=== PATIENT | male | born 1960 | race Caucasian/White ===

== ENCOUNTER 2022-07-15 08:44 | Observation (INO) | payer BC, OTHER ==
[2022-07-15] MEDS ORDERED: SODIUM CHLORIDE 1,000 ML IV STA (08:59)
[2022-07-15] MEDS ORDERED: ACETAMINOPHEN 325 MG TABLET (FP) PO ONE (08:59)
[2022-07-15] MEDS ORDERED: ACETAMINOPHEN 325 MG TABLET (FP) ONE (09:06)
[2022-07-15 09:44] LABS: INR 1.13 (0.83-1.09)
[2022-07-15 09:46] LABS: HEMATOCRIT 46.8 % (35.4-49); HEMOGLOBIN 16.3 G/dL (11.7-16.9); MCH 29.3 pg (25.7-33.7); MCHC 34.8 g/dl (32.0-35.9); MEAN CELL VOLUME 84.3 fl (80-96); MEAN PLT VOLUME 7.9 fl (7.5-11.1); PLATELET COUNT 219.8 10^3/uL (134-434); RBC 5.55 10^6/uL (4.00-5.60); RDW 15.1 % (11.9-15.9); WHITE BLOOD COUNT 9.7 10^3/uL (4.0-10.8)
[2022-07-15 09:53] LABS: BILIRUBIN,TOTAL 0.7 mg/dl (0.2-1); CALCIUM 9.3 mg/dl (8.5-10); CREATININE 0.7 mg/dl (0.55-1.3); TOT PROT 7.1 g/dl (6.4-8.2)
[2022-07-15 10:09] LABS: PLATELET ESTIMATE ADEQUATE
[2022-07-15] MEDS ORDERED: IBUPROFEN 600 MG TABLET (FP) PO PRN (15:07)
[2022-07-15 15:10] VITALS: BMI 45.9
[2022-07-15] MEDS: PREGABALIN 100 MG CAPSULE PO SCH (21:23)
[2022-07-16 08:53] LABS: CALCIUM 8.8 mg/dl (8.5-10); CREATININE 0.7 mg/dl (0.55-1.3); MAGNESIUM 1.7 mg/dL (1.8-2.4); PHOSPHOROUS 3.9 mg/dl (2.5-4.9)
[2022-07-16] MEDS ORDERED: FINGOLIMOD HCL 0.5 MG PO SCH (10:00)
[2022-07-16] MEDS: ACETAMINOPHEN 500 MG TABLET (FP) PO SCH ×3 (10:06→21:25)
[2022-07-16] MEDS: PREGABALIN 100 MG CAPSULE PO SCH ×2 (10:06→21:25)
[2022-07-16 10:07] LABS: BASO % 0.1 % (0-2.0); HEMATOCRIT 45.6 % (35.4-49); HEMOGLOBIN 14.6 GM/dL (11.7-16.9); LYMPH % 10.1 % (8-40); MCH 27.3 pg (25.7-33.7); MCHC 32.1 g/dl (32.0-35.9); MEAN CELL VOLUME 85.1 fl (80-96); MEAN PLT VOLUME 8.1 fl (7.5-11.1); MONO % 15.5 % (3.8-10.2); NEUT % 74.3 % (42.8-82.8); PLATELET COUNT 206 10^3/uL (134-434); RBC 5.36 M/mm3 (4.00-5.60); RDW 14.6 % (11.9-15.9); WHITE BLOOD COUNT 6.2 K/mm3 (4.0-10.0)
[2022-07-16] MEDS ORDERED: MAGNESIUM SULF 50% (8.12 MEQ/2 ML-1 GM VIAL) IVPB ONE (10:16)
[2022-07-16 12:44] VITALS: RESP 18
[2022-07-17] MEDS: ACETAMINOPHEN 500 MG TABLET (FP) PO SCH ×3 (02:39→14:05)
[2022-07-17 06:44] VITALS: BP 146/85; PULSE 60; TEMP 98.5
[2022-07-17] MEDS: PREGABALIN 100 MG CAPSULE PO SCH (09:50)
== END 2022-07-17 16:07 | disposition home or self-care (01) ==
LOC: FER 08:44 → INTOOBSV 12:02 → FM/S 12:02 → OBSVTOIN 12:02 → FM/S 12:36
PROVIDERS: ADMIT Internal Medicine; ATTEND Internal Medicine
PROC: 3E033GC Introduction of Other Therapeutic Substance into Peripheral Vein, Percutaneous Approach (ICD-10-PCS; principal; 2022-07-15)
PROC: 3E0337Z Introduction of Electrolytic and Water Balance Substance into Peripheral Vein, Percutaneous Approach (ICD-10-PCS; 2022-07-15)
DX: U07.1 COVID-19 (principal); E66.01 Morbid (severe) obesity due to excess calories; Z68.42 Body mass index [BMI] 45.0-49.9, adult; G89.29 Other chronic pain; G35 Multiple sclerosis; Z72.0 Tobacco use
CPT/HCPCS: 0241U-QW; 36415; 71045-TC-FY; 80048; 80053; 81003; 82607; 82746; 83735; 84100; 84439; 84443; 84484; 85025; 85610; 85730; 87040; 87086; 93005; 96361; 96374; 97116-GP; 97161-GP; 99285-25; G0378

== ENCOUNTER 2023-07-17 00:47 | Emergency (ER) | payer BC ==
[2023-07-17 00:58] VITALS: BP 139/88; PULSE 89; RESP 18; TEMP 99.3; BMI 46.0
[2023-07-17 02:09] LABS: HEMOGLOBIN 15.1 GM/dL (11.7-16.9); MCH 27.9 pg (25.7-33.7); MCHC 33.5 g/dl (32.0-35.9); MEAN CELL VOLUME 83.3 fl (80-96); PLATELET COUNT 246 10^3/uL (134-434); RBC 5.41 M/mm3 (4.00-5.60); RDW 13.8 % (11.9-15.9); WHITE BLOOD COUNT 14.8 K/mm3 (4.0-10.0)
[2023-07-17 02:33] LABS: POTASSIUM 4.1 mmol/L (3.5-5.1)
[2023-07-17 02:36] LABS: CALCIUM 9.3 mg/dL (8.5-10.1)
[2023-07-17 02:37] LABS: ALBUMIN 3.1 g/dl (3.4-5.0); BLOOD UREA NITROGEN 16.8 mg/dL (7-18); MAGNESIUM 1.5 mg/dL (1.8-2.4)
[2023-07-17 02:40] LABS: CREATININE 0.6 mg/dL (0.55-1.3)
[2023-07-17 02:41] LABS: BILIRUBIN,TOTAL 0.6 mg/dL (0.2-1); TOT PROT 6.6 g/dl (6.4-8.2)
[2023-07-17] MEDS ORDERED: MAGNESIUM 1GM/D5W 100ML - 100 ML IVPB IVPB STA (03:28)
[2023-07-17] MEDS ORDERED: ACETAMINOPHEN 1000 MG/100 ML BAG IVPB ONE (03:32)
[2023-07-17] MEDS ORDERED: MAGNESIUM 1GM/D5W - 1 GM/100 ML IVPB IVPB ONE (03:41)
[2023-07-17] MEDS ORDERED: ACETAMINOPHEN INJECTION 100 ML IVPB ONE (03:41)
== END 2023-07-17 11:52 | disposition home or self-care (01) ==
LOC: FER 00:47
PROC: 3E033NZ Introduction of Analgesics, Hypnotics, Sedatives into Peripheral Vein, Percutaneous Approach (ICD-10-PCS; principal; 2023-07-17)
PROC: 3E033GC Introduction of Other Therapeutic Substance into Peripheral Vein, Percutaneous Approach (ICD-10-PCS; 2023-07-17)
DX: R53.1 Weakness (principal); R50.9 Fever, unspecified; G35 Multiple sclerosis; E83.42 Hypomagnesemia; W19.XXXA Unspecified fall, initial encounter; Z20.822 Contact with and (suspected) exposure to COVID-19
CPT/HCPCS: 0241U-QW; 36415; 80053; 81003; 83735; 84100; 85027; 87040; 87086; 96374; 96375; 99284-25